=== PATIENT | male | born 1940 | race Caucasian/White ===

== ENCOUNTER → 2016-12-04 | Outpatient (CLI) | payer MEDICARE ==
[~2016-12-04] MED LIST: ACID CONTROL150 MG PO; AMLODIPINE BESYL5 MG PO; AUGMENTIN 875-1 EACH PO; DIABETA 5 MG TAB5 MG PO; FLOMAX 0.4 MG0.4 MG PO; LANTUS100 UNIT/1 SQ; LISINOPRIL40 MG PO; LOTRISONE CREAM15 GM TOP; NEURONTIN 300300 MG PO; NIZORAL 2% SHA120 ML EXT; NOVOLOG 10100 UNITS/ SQ; SENOKOT-S TABL1 EACH PO; SIMVASTATIN40 MG PO; TENORMIN 25 MG25 MG PO; TYLENOL 325MG325 MG PO
== END ==
LOC: RT 14:23
DX: E11.9 Type 2 diabetes mellitus without complications (principal); I10 Essential (primary) hypertension
CPT/HCPCS: 93005

== ENCOUNTER → 2016-12-11 | Outpatient (CLI) | payer MEDICARE | LOC: NM 13:00 | DX: K21.9 Gastro-esophageal reflux disease without esophagitis (principal); R93.3 Abnormal findings on diagnostic imaging of other parts of digestive tract | CPT/HCPCS: 78264; A9541 ==

== ENCOUNTER → 2016-12-26 | Outpatient (CLI) | payer MEDICARE | LOC: RAD 07:31 | DX: K21.9 Gastro-esophageal reflux disease without esophagitis (principal); K44.9 Diaphragmatic hernia without obstruction or gangrene | CPT/HCPCS: 74246 ==